=== PATIENT | female | born 1930 | race Caucasian/White ===

== ENCOUNTER 2019-04-10 14:47 | Emergency (ER) | payer OTHER ==
[~2019-04-10] VITALS: Ht 162.6 cm; Wt 60.8 kg
[2019-04-10 14:55] VITALS: BP_SYST 114
[2019-04-10 15:53] LABS: HEMATOCRIT 36.7 % (36-48); HEMOGLOBIN 12.5 g/dL (12.0-16.0); MEAN CORPUSCULAR HEMOGLOBIN 32 pg (27-31); MEAN CORPUSCULAR HGB CONC 34 % (32-36); MEAN CORPUSCULAR VOLUME 93 fL (79.0-98.0); RED BLOOD CELL COUNT(AUTO) 3.95 MIL/uL (4.2-6.2); RED CELL DISTRIBUTION WIDTH 13.7 % (9.0-15.0); WHITE BLOOD COUNT (AUTO) 6.5 K/uL (4.8-10.8)
[2019-04-10 15:54] LABS: BASOPHILS # (AUTO) 0.1 K/uL (0.0-0.2); BASOPHILS % (AUTO) 0.8 % (0.0-2.0); EOSINOPHILS # (AUTO) 0.5 K/uL (0.0-0.4); EOSINOPHILS % (AUTO) 8.2 % (0.0-4.0); LYMPHOCYTES % (AUTO) 16.1 % (20.5-51.5); MONOCYTES # (AUTO) 0.6 K/uL (0.0-1.0); MONOCYTES % (AUTO) 8.7 % (1.7-9.3); NEUTROPHILS # (AUTO) 4.3 K/uL (1.8-7.7); NEUTROPHILS % (AUTO) 66.2 % (40.0-70.0); PLATELET COUNT (AUTO) 237 K/uL (130-430)
[2019-04-10 16:06] LABS: ANION GAP 8 (5-15); CALCIUM 8.4 mg/dL (8.4-11.0); CHLORIDE 104 mmol/L (98-107); CREATININE 1.03 mg/dL (0.55-1.30); GLUCOSE 98 mg/dL (70-99); POTASSIUM 3.4 mmol/L (3.5-5.1); SODIUM SERUM 139 mmol/L (136-145); UREA NITROGEN, BLOOD 20 mg/dL (8-21)
[2019-04-10 16:11] LABS: INR 1.1 (0.8-1.2); PROTHROMBIN TIME 10.6 SECS (9.5-12.5)
[2019-04-10 16:12] LABS: ALANINE AMINOTRANSFERASE 20 U/L (12-78); ALBUMIN 2.9 g/dL (3.4-4.8); ASPARTATE AMINOTRANSFERASE 19 U/L (10-37); TOTAL BILIRUBIN 0.3 mg/dL (0.0-1.0)
[2019-04-10 16:50] VITALS: BP_SYST 114
== END 2019-04-10 16:51 | disposition home or self-care (01) ==
LOC: SED 14:47
DX: J06.9 Acute upper respiratory infection, unspecified (principal); R91.1 Solitary pulmonary nodule; I10 Essential (primary) hypertension; E78.5 Hyperlipidemia, unspecified
CPT/HCPCS: 36415; 71046-TC; 80053; 83605; 85025; 85610-TC; 85730-TC; 87040-TC; 93005; 99284

== ENCOUNTER 2019-10-25 15:21 | Inpatient (IN) | payer OTHER, SELFPAY ==
[~2019-10-25] VITALS: Ht 165.1 cm; Wt 60.3 kg
[2019-10-25 15:55] VITALS: BP_SYST 185
[2019-10-25] MEDS ORDERED: HALOPERIDOL LACTATE 5 MG/ML VIAL IM ONE (16:45)
[2019-10-25] MEDS ORDERED: HALOPERIDOL LACTATE 5 MG/ML VIAL ONE (16:50)
[2019-10-25] MEDS ORDERED: MAGNESIUM SULFATE 50 ML IV ONE ×2 (17:00→17:19)
[2019-10-25 17:11] LABS: BASOPHILS % (AUTO) 0.5 % (0.0-2.0); EOSINOPHILS # (AUTO) 0.1 K/uL (0.0-0.4); EOSINOPHILS % (AUTO) 1.3 % (0.0-4.0); HEMATOCRIT 42.2 % (36-48); HEMOGLOBIN 14.1 g/dL (12.0-16.0); LYMPHOCYTES # (AUTO) 1.1 K/uL (1.0-5.5); LYMPHOCYTES % (AUTO) 12.8 % (20.5-51.5); MEAN CORPUSCULAR HEMOGLOBIN 33 pg (27-31); MEAN CORPUSCULAR HGB CONC 34 % (32-36); MEAN CORPUSCULAR VOLUME 97 fL (79.0-98.0); MONOCYTES # (AUTO) 0.7 K/uL (0.0-1.0); MONOCYTES % (AUTO) 7.7 % (1.7-9.3); NEUTROPHILS # (AUTO) 6.8 K/uL (1.8-7.7); NEUTROPHILS % (AUTO) 77.7 % (40.0-70.0); PLATELET COUNT (AUTO) 239 K/uL (130-430); RED BLOOD CELL COUNT(AUTO) 4.33 MIL/uL (4.2-6.2); RED CELL DISTRIBUTION WIDTH 14.4 % (9.0-15.0); WHITE BLOOD COUNT (AUTO) 8.7 K/uL (4.8-10.8)
[2019-10-25 17:31] LABS: ANION GAP 11 (5-15); CALCIUM 9.1 mg/dL (8.4-11.0); CHLORIDE 104 mmol/L (98-107); CREATININE 1.15 mg/dL (0.55-1.30); GLUCOSE 111 mg/dL (70-99); POTASSIUM 3.8 mmol/L (3.5-5.1); SODIUM SERUM 140 mmol/L (136-145); UREA NITROGEN, BLOOD 15 mg/dL (8-21)
[2019-10-25 17:36] LABS: ALANINE AMINOTRANSFERASE 20 U/L (12-78); ALBUMIN 3.5 g/dL (3.4-4.8); ASPARTATE AMINOTRANSFERASE 25 U/L (10-37); TOTAL BILIRUBIN 0.6 mg/dL (0.0-1.0)
[2019-10-25 17:42] LABS: ACETAMINOPHEN < 1 ug/mL (1-30); ALCOHOL, BLOOD < 3 mg/dL (<10)
[2019-10-25 19:10] LABS: BILIRUBIN,URINE NEGATIVE (NEGATIVE); BLOOD, URINE 1+ (NEGATIVE); COLOR,URINE YELLOW (YELLOW); GLUCOSE,URINE NEGATIVE (NEGATIVE); KETONES,URINE NEGATIVE (NEGATIVE); LEUKOCYTE ESTERASE ,URINE 2+ (NEGATIVE); NITRITE, URINE NEGATIVE (NEGATIVE); PROTEIN URINE 1+ (NEGATIVE); UROBILINOGEN,URINE 0.2 (0.2-1.0)
[2019-10-25 19:13] LABS: CLARITY/URINE HAZY (CLEAR)
[2019-10-25 19:22] LABS: BACTERIA,URINE MODERATE /HPF (None Seen); WBC,URINE 20-50 /HPF (0-3)
[2019-10-25 19:29] LABS: BENZODIAZEPINE, URINE POSITIVE (NEG <=150); CANNABINOID, URINE NEGATIVE (NEG <=50); COCAINE, URINE NEGATIVE (NEG <=150); OPIATE, URINE NEGATIVE (NEG <=100); PHENCYCLIDINE SCREEN,URINE NEGATIVE (NEG <=25); UR TRICYCLIC ANTIDEPRESSANTS NEGATIVE (NEG <=300); URINE OXYCODONE SCREEN NEGATIVE (NEG <=100); URINE PROPOXYPHENE SCREEN NEGATIVE (NEG <=300)
[2019-10-25 19:30] LABS: BARBITURATE, URINE NEGATIVE (NEG <=200); METHAMPHETAMINES SCREEN,URINE NEGATIVE (NEG <=500); URINE AMPHETAMINE NEGATIVE (NEG <=500); URINE METHADONE NEGATIVE (NEG <=200)
[2019-10-25] MEDS ORDERED: cefTRIAXone 1 GM in D5W 50 ML IV ONE (19:30)
[2019-10-25] MEDS ORDERED: cefTRIAXone 1 GM VIAL ONE (19:43)
[2019-10-25] MEDS ORDERED: HALOPERIDOL LACTATE 5 MG/ML VIAL IVP ONE (19:45)
[2019-10-25] MEDS ORDERED: DIPHENHYDRAMINE INJ 50 MG/ML VIAL ONE (23:29)
[2019-10-25] MEDS ORDERED: HALOPERIDOL 1 MG TABLET (HALDOL) PO PRN (23:30)
[2019-10-25] MEDS ORDERED: cefTRIAXone 1 GM in D5W 50 ML IV SCH (23:30)
[2019-10-25] MEDS: DIPHENHYDRAMINE INJ 50 MG/ML VIAL IVP SCH (23:48)
[2019-10-26] MEDS: QUEtiapine FUMARATE 25 MG TABLET PO ONE ×2 (00:40→00:47)
[2019-10-26 00:54] VITALS: BP_SYST 159
[2019-10-26] MEDS ORDERED: HALOPERIDOL LACTATE 5 MG/ML VIAL IM PRN (01:45)
[2019-10-26] MEDS: LORazepam 2 MG/ML VIAL IVP PRN ×3 (02:25→15:35)
[2019-10-26] MEDS: DIPHENHYDRAMINE INJ 50 MG/ML VIAL IVP SCH ×4 (06:09→23:35)
[2019-10-26 08:04] LABS: ALANINE AMINOTRANSFERASE 19 U/L (12-78); ALBUMIN 3.1 g/dL (3.4-4.8); ANION GAP 7 (5-15); ASPARTATE AMINOTRANSFERASE 20 U/L (10-37); CALCIUM 8.9 mg/dL (8.4-11.0); CHLORIDE 101 mmol/L (98-107); CREATININE 1.04 mg/dL (0.55-1.30); GLUCOSE 85 mg/dL (70-99); POTASSIUM 3.3 mmol/L (3.5-5.1); SODIUM SERUM 137 mmol/L (136-145); THYROID STIMULATING HORMONE 3.98 uIu/mL (0.34-4.82); TOTAL BILIRUBIN 0.7 mg/dL (0.0-1.0); UREA NITROGEN, BLOOD 13 mg/dL (8-21)
[2019-10-26] MEDS ORDERED: QUEtiapine FUMARATE 25 MG TABLET PO SCH (09:00)
[2019-10-26] MEDS ORDERED: QUEtiapine FUMARATE 25 MG TABLET PO ONE (11:00)
[2019-10-26] MEDS ORDERED: POTASSIUM CHLORIDE 40 MEQ, LIDOCAINE JECT 2% PF 100 MG 50 MG in NS 250 ML IV ONE (11:00)
[2019-10-26 11:32] VITALS: BP_SYST 152
[2019-10-26] MEDS ORDERED: RIVA1PAT TP (14:19)
[2019-10-26] MEDS ORDERED: MEMA10TA PO (14:19)
[2019-10-26 15:26] VITALS: BP_SYST 113
[2019-10-26] MEDS: QUEtiapine FUMARATE 25 MG TABLET PO SCH ×2 (15:36→21:03)
[2019-10-26 18:35] VITALS: BP_SYST 120
[2019-10-26 20:00] VITALS: BP_SYST 162
[2019-10-26] MEDS: cefTRIAXone 1 GM in D5W 50 ML IV SCH (21:03)
[2019-10-26] MEDS: cloNIDine HCL 0.1 MG TABLET PO PRN (21:17)
[2019-10-27] VITALS: BP_SYST 136
[2019-10-27] MEDS: DIPHENHYDRAMINE INJ 50 MG/ML VIAL IVP SCH ×3 (05:24→17:35)
[2019-10-27 07:56] LABS: ANION GAP 8 (5-15); CALCIUM 9.1 mg/dL (8.4-11.0); CHLORIDE 103 mmol/L (98-107); CREATININE 1.28 mg/dL (0.55-1.30); GLUCOSE 85 mg/dL (70-99); SODIUM SERUM 138 mmol/L (136-145); UREA NITROGEN, BLOOD 20 mg/dL (8-21)
[2019-10-27 08:00] VITALS: BP_SYST 125
[2019-10-27 08:03] LABS: BASOPHILS # (AUTO) 0.1 K/uL (0.0-0.2); BASOPHILS % (AUTO) 0.6 % (0.0-2.0); EOSINOPHILS # (AUTO) 0.2 K/uL (0.0-0.4); EOSINOPHILS % (AUTO) 2.1 % (0.0-4.0); HEMATOCRIT 42.4 % (36-48); HEMOGLOBIN 14.3 g/dL (12.0-16.0); LYMPHOCYTES # (AUTO) 1.1 K/uL (1.0-5.5); LYMPHOCYTES % (AUTO) 11.1 % (20.5-51.5); MEAN CORPUSCULAR HEMOGLOBIN 33 pg (27-31); MEAN CORPUSCULAR HGB CONC 34 % (32-36); MEAN CORPUSCULAR VOLUME 97 fL (79.0-98.0); MONOCYTES # (AUTO) 0.9 K/uL (0.0-1.0); MONOCYTES % (AUTO) 9.6 % (1.7-9.3); NEUTROPHILS # (AUTO) 7.5 K/uL (1.8-7.7); NEUTROPHILS % (AUTO) 76.6 % (40.0-70.0); PLATELET COUNT (AUTO) 208 K/uL (130-430); RED BLOOD CELL COUNT(AUTO) 4.38 MIL/uL (4.2-6.2); RED CELL DISTRIBUTION WIDTH 14.1 % (9.0-15.0); WHITE BLOOD COUNT (AUTO) 9.8 K/uL (4.8-10.8)
[2019-10-27 08:14] LABS: FOLATE (FOLIC ACID) >20.0 ng/mL (>3.0)
[2019-10-27] MEDS: QUEtiapine FUMARATE 25 MG TABLET PO SCH ×4 (08:33→16:30)
[2019-10-27 12:00] VITALS: BP_SYST 161
[2019-10-27] MEDS: cloNIDine HCL 0.1 MG TABLET PO PRN (13:12)
[2019-10-27] MEDS ORDERED: RIVASTIGMINE 4.6 MG/24 HR PATCH.TD24 TD SCH (15:00)
[2019-10-27] MEDS: RIVASTIGMINE 4.6 MG TD SCH (16:42)
[2019-10-27 16:50] VITALS: BP_SYST 159
[2019-10-27] MEDS ORDERED: OLANZapine IntraMuscular 10 MG VIAL (FOR I.M. INJECTION ONLY) IM ONE (18:00)
[2019-10-27] MEDS: D5LR 1,000 ML IV SCH (18:24)
[2019-10-27 19:00] VITALS: BP_SYST 104
[2019-10-27] MEDS ORDERED: RIVASTIGMINE 4.6 MG/24 HR PATCH.TD24 TP SCH (19:30)
[2019-10-27] MEDS ORDERED: cloNIDine HCL 0.1 MG TABLET PO PRN (19:30)
[2019-10-27 20:00] VITALS: BP_SYST 104
[2019-10-27] MEDS ORDERED: OLANZapine 5 MG TABLET PO SCH (21:00)
[2019-10-27] MEDS: cefTRIAXone 1 GM in D5W 50 ML IV SCH (21:17)
[2019-10-27] MEDS: MEMANTINE HCL 5 MG TABLET PO SCH (21:17)
[2019-10-28 00:24] VITALS: BP_SYST 121
[2019-10-28] MEDS: DIPHENHYDRAMINE INJ 50 MG/ML VIAL IVP SCH ×3 (05:36→11:38)
[2019-10-28] MEDS ORDERED: QUEtiapine FUMARATE 25 MG TABLET PO SCH (08:00)
[2019-10-28] MEDS: MEMANTINE HCL 5 MG TABLET PO SCH (08:23)
[2019-10-28 08:27] VITALS: BP_SYST 155
[2019-10-28] MEDS ORDERED: MEMANTINE HCL 5 MG TABLET PO SCH (09:00)
[2019-10-28] MEDS ORDERED: FLUoxetine HCL 20 MG CAPSULE (PROzac) PO SCH (09:00)
[2019-10-28] MEDS: D5LR 1,000 ML IV SCH (10:28)
[2019-10-28 11:28] VITALS: BP_SYST 159
[2019-10-28 15:40] VITALS: BP_SYST 173
[2019-10-28] MEDS: RIVASTIGMINE 4.6 MG TD SCH (15:56)
[2019-10-28] MEDS ORDERED: PRO20 PO (16:10)
[2019-10-28] MEDS ORDERED: QUET50TA PO (16:10)
== END 2019-10-28 16:50 | disposition home or self-care (01) | DRG 690 ==
LOC: SED 15:21 → SMU 22:13 → STU 23:45 → SMU 10-27 15:36
PROVIDERS: ADMIT Internal Medicine; ATTEND Internal Medicine
DX: N39.0 Urinary tract infection, site not specified (principal); F23 Brief psychotic disorder; F03.91 Unspecified dementia, unspecified severity, with behavioral disturbance; E87.6 Hypokalemia; I11.9 Hypertensive heart disease without heart failure; I35.0 Nonrheumatic aortic (valve) stenosis; E78.5 Hyperlipidemia, unspecified; Z78.1 Physical restraint status; Z03.818 Encounter for observation for suspected exposure to other biological agents ruled out
CPT/HCPCS: 36415; 70450-TC; 71045; 80048; 80053; 80307; 81000-TC; 82607; 82746; 83735-TC; 84439; 84443-TC; 84484; 85025; 87086; 93005; 93306; 96365; 96372; 96375; 99285; G0378; G0480; G0481; G0482; J0696; J1200; J1630; J2060; J3475; J3480; J3490; J7050; J7060; J7120; U0003-CS